=== PATIENT | male | born 1940 | race Caucasian/White ===

== ENCOUNTER 2016-07-21 07:15 | Inpatient (IN) | payer MEDICARE, OTHER ==
[~2016-07-21] VITALS: Ht 180.3 cm; Wt 103.2 kg
[2016-07-28 08:06] VITALS: BMI 31.7
[2016-07-28 08:52] VITALS: BP_SYST 140; TEMP 97.6
[2016-08-14 11:14] VITALS: BP_SYST 140; RESP 18; TEMP 97.6
[2016-08-14 11:15] VITALS: Ht 180.3 cm; Wt 103.2 kg
[2016-08-18] VITALS (17 sets, daily range): BP systolic 119–166; RESP 16–20; TEMP 97.4–98.5
[2016-08-18] MEDS ORDERED: ROPIVACAINE 0.5% 139 MG, EPINEPHrine 1:1,000 0.2 MG, KETOROLAC INJ 30 MG, MORPHINE 10 MG SUBQ ONE ×4 (06:10)
[2016-08-18] MEDS ORDERED: CEFAZOLIN 2,000 MG in SODIUM CHLORIDE 0.9% 100 ML IV ONE (06:15)
[2016-08-18] MEDS ORDERED: LACT RINGERS 1,000 ML IV SCH ×2 (06:35→09:05)
[2016-08-18] MEDS ORDERED: METOCLOPRAMIDE 10 MG/2 ML VIAL IV PUSH ONE (06:35)
[2016-08-18] MEDS ORDERED: MIDAZOLAM 2 MG/2 ML INJ IV ONE (06:35)
[2016-08-18] MEDS ORDERED: LIDOCAINE 1% BUFFERED 1 ML SYR INTRADERM PRN (06:35)
[2016-08-18] MEDS ORDERED: ONDANSETRON 4 MG VIAL IV PRN ×2 (07:50→09:05)
[2016-08-18] MEDS ORDERED: MORPHINE 4 MG/ML SYR IV PRN ×2 (07:50→09:05)
[2016-08-18] MEDS ORDERED: MORPHINE 2 MG/ML SYR IV PRN ×2 (07:50→09:05)
[2016-08-18] MEDS ORDERED: MEPERIDINE 25 MG/ML IV PRN (07:50)
[2016-08-18] MEDS ORDERED: DILAUDID 1 MG/ML AMP IV PRN (07:50)
[2016-08-18] MEDS ORDERED: OXYCODONE 5 MG TAB PO PRN (07:50)
[2016-08-18] MEDS ORDERED: MAG HYDROX 30 ML UDC PO PRN (09:05)
[2016-08-18] MEDS ORDERED: ZOLPIDEM 5 MG TAB PO PRN (09:05)
[2016-08-18] MEDS ORDERED: GLUCAGON 1 MG VIAL IM PRN (09:05)
[2016-08-18] MEDS ORDERED: SALINE FLUSH 10 ML FLUSH PRN (09:05)
[2016-08-18] MEDS ORDERED: DEXTROSE 50% SYRINGE 50 ML IV PRN (09:05)
[2016-08-18] MEDS ORDERED: ONDANSETRON 4 MG TAB PO PRN (09:05)
[2016-08-18] MEDS ORDERED: BACITRACIN 50,000 UNITS INJ IRRIG ONE (10:20)
[2016-08-18] MEDS: KETOROLAC 30 MG/ML VIAL IV PRN (10:48)
[2016-08-18] MEDS ORDERED: ROPIVACAINE 5 MG/ML 30 ML EPIDURAL ONE (11:13)
[2016-08-18] MEDS ORDERED: LIDOCAINE/EPI 2% MPF 20 ML EPIDURAL ONE (11:13)
[2016-08-18] MEDS ORDERED: ACETAMINOPHEN 1,000 MG/100 ML IV ONE (11:14)
[2016-08-18] MEDS ORDERED: NEOSTIGMINE 10 MG/10 ML VIAL IV ONE (11:14)
[2016-08-18] MEDS ORDERED: PROPOFOL 20 ML VIAL IV ONE (11:14)
[2016-08-18] MEDS ORDERED: GLYCOPYRROLATE 0.2 MG/ML VIAL IV ONE (11:14)
[2016-08-18] MEDS ORDERED: ROCURONIUM 50 MG VIAL IV ONE (11:14)
[2016-08-18] MEDS ORDERED: LIDOCAINE 2% SYR 5 ML IV ONE (11:14)
[2016-08-18] MEDS ORDERED: LIDOCAINE 2% JELLY 30 ML TOPICAL ONE (11:14)
[2016-08-18] MEDS ORDERED: ONDANSETRON 4 MG VIAL IV PUSH ONE (11:14)
[2016-08-18] MEDS ORDERED: FENTANYL 100 MCG/2 ML AMP IV ONE (11:14)
[2016-08-18] MEDS ORDERED: DILAUDID 1 MG/ML AMP IV ONE (11:14)
[2016-08-18] MEDS: CEFAZOLIN 2,000 MG in SODIUM CHLORIDE 0.9% 100 ML IV SCH ×2 (13:18→18:43)
[2016-08-18] MEDS: CALCIUM CARB/VIT D3 600 MG TAB PO SCH (15:16)
[2016-08-18] MEDS: PANTOPRAZOLE 40 MG TAB PO SCH (15:16)
[2016-08-18] MEDS: SALINE FLUSH 10 ML FLUSH SCH (20:00)
[2016-08-18] MEDS: SENNA 8.6 MG TAB PO SCH (20:57)
[2016-08-18] MEDS: METFORMIN XR 500 MG TAB PO SCH (20:57)
[2016-08-18] MEDS: DOCUSATE SOD 100 MG CAP PO SCH (20:57)
[2016-08-18] MEDS: Atorvastatin 40 MG TAB PO SCH (20:57)
[2016-08-19] MEDS: CEFAZOLIN 2,000 MG in SODIUM CHLORIDE 0.9% 100 ML IV SCH ×2 (00:44→06:05)
[2016-08-19 03:30] VITALS: BP_SYST 110; RESP 16; TEMP 99.1
[2016-08-19] MEDS: KETOROLAC 30 MG/ML VIAL IV PRN (03:43)
[2016-08-19] MEDS: SODIUM CHLORIDE 0.9% FLUSH BAG 500 ML IV SCH ×2 (06:00→23:11)
[2016-08-19] MEDS: PANTOPRAZOLE 40 MG TAB PO SCH (06:05)
[2016-08-19] MEDS: FONDAPARINUX 2.5 MG SYR SUBQ SCH (06:06)
[2016-08-19 07:20] VITALS: BP_SYST 132; RESP 20; TEMP 98.1
[2016-08-19] MEDS: CALCIUM CARB/VIT D3 600 MG TAB PO SCH (08:01)
[2016-08-19] MEDS: Losartan 50 MG TAB PO SCH (08:02)
[2016-08-19] MEDS: METFORMIN XR 500 MG TAB PO SCH ×2 (08:02→20:48)
[2016-08-19] MEDS: DOCUSATE SOD 100 MG CAP PO SCH ×2 (08:03→20:48)
[2016-08-19] MEDS: SITAGLIPTIN 50 MG TAB PO SCH (08:04)
[2016-08-19] MEDS: MULTIVITS/MINERALS (THERAGRAN M) TAB PO SCH (08:05)
[2016-08-19] MEDS: SENNA 8.6 MG TAB PO SCH ×2 (08:06→20:48)
[2016-08-19] MEDS: SALINE FLUSH 10 ML FLUSH SCH ×2 (08:07→20:00)
[2016-08-19] MEDS: GLIMEPIRIDE 2 MG TAB PO SCH (08:07)
[2016-08-19] MEDS: METOPROLOL XL 50 MG TAB PO SCH (08:07)
[2016-08-19] MEDS: POLYETHYLENE GLYCOL 17 GM PACKET PO SCH (08:08)
[2016-08-19] MEDS: MAG HYDROX 30 ML UDC PO SCH (08:08)
[2016-08-19] MEDS ORDERED: BISACODYL 10 MG SUPP RECTAL PRN (10:10)
[2016-08-19 11:00] VITALS: BP_SYST 113; RESP 18; TEMP 98.5
[2016-08-19 15:31] VITALS: BP_SYST 135; RESP 18; TEMP 99.4
[2016-08-19 20:12] VITALS: BP_SYST 121; RESP 18; TEMP 99.1
[2016-08-19] MEDS: Atorvastatin 40 MG TAB PO SCH (20:48)
[2016-08-19 23:45] VITALS: BP_SYST 127; RESP 20; TEMP 98.8
[2016-08-20 03:58] VITALS: BP_SYST 137; RESP 20; TEMP 98.4
[2016-08-20] MEDS: PANTOPRAZOLE 40 MG TAB PO SCH (05:55)
[2016-08-20] MEDS: FONDAPARINUX 2.5 MG SYR SUBQ SCH (05:56)
[2016-08-20 07:51] VITALS: BP_SYST 145; RESP 18; TEMP 98.5
[2016-08-20] MEDS: SALINE FLUSH 10 ML FLUSH SCH (08:34)
[2016-08-20] MEDS: GLIMEPIRIDE 2 MG TAB PO SCH (08:34)
[2016-08-20] MEDS: CALCIUM CARB/VIT D3 600 MG TAB PO SCH (08:35)
[2016-08-20] MEDS: DOCUSATE SOD 100 MG CAP PO SCH (08:35)
[2016-08-20] MEDS: Losartan 50 MG TAB PO SCH (08:35)
[2016-08-20] MEDS: METFORMIN XR 500 MG TAB PO SCH (08:36)
[2016-08-20] MEDS: POLYETHYLENE GLYCOL 17 GM PACKET PO SCH (08:37)
[2016-08-20] MEDS: SITAGLIPTIN 50 MG TAB PO SCH (08:37)
[2016-08-20] MEDS: MAG HYDROX 30 ML UDC PO SCH (08:37)
[2016-08-20] MEDS: SENNA 8.6 MG TAB PO SCH (08:39)
[2016-08-20] MEDS: METOPROLOL XL 50 MG TAB PO SCH (08:39)
[2016-08-20] MEDS: MULTIVITS/MINERALS (THERAGRAN M) TAB PO SCH (08:39)
[2016-08-20 10:32] VITALS: BP_SYST 145; RESP 18; TEMP 98.5
== END 2016-08-20 12:47 | disposition home health service (06) | DRG 470 ==
LOC: ENPENDDIS 08-18 06:06 → SDS 08-18 06:06 → 2NO 08-18 09:48
PROVIDERS: ADMIT Internal Medicine; ATTEND Internal Medicine
PROC: 0SRC0J9 Replacement of Right Knee Joint with Synthetic Substitute, Cemented, Open Approach (ICD-10-PCS; principal; 2016-08-18 07:13)
DX: M17.11 Unilateral primary osteoarthritis, right knee (principal); E11.9 Type 2 diabetes mellitus without complications; I10 Essential (primary) hypertension; I25.10 Atherosclerotic heart disease of native coronary artery without angina pectoris; E78.5 Hyperlipidemia, unspecified; Z85.46 Personal history of malignant neoplasm of prostate; Z85.72 Personal history of non-Hodgkin lymphomas; Z82.49 Family history of ischemic heart disease and other diseases of the circulatory system; Z83.3 Family history of diabetes mellitus; Z79.82 Long term (current) use of aspirin; Z79.84 Long term (current) use of oral hypoglycemic drugs
CPT/HCPCS: 80048; 82947; 85014; 85018; 85025; 86850; 86900; 86901; 94762; 94799